=== PATIENT | female | born 1990 | race African-American/Black ===

== ENCOUNTER 2018-06-14 14:25 | Emergency (ER) | payer OTHER ==
[2018-06-14 15:03] LABS: ADD MAN DIFF? NO
[2018-06-14 15:13] LABS: BASOPHILS % 0.4 % (0.0-2.0); EOSINOPHILS # 0.1 10^3/ul (0.0-0.5); EOSINOPHILS % 1.9 % (0.0-7.0); HEMATOCRIT 36.6 % (37.0-47.0); HEMOGLOBIN 12.5 g/dl (12.0-16.0); LYMPHOCYTES # 1.7 10^3/ul (0.8-2.9); LYMPHOCYTES % 32.9 % (15.0-51.0); MEAN CORPUSCULAR HEMOGLOBIN 31.2 pg (29.0-33.0); MEAN CORPUSCULAR HGB CONC 34.2 g/dl (32.0-37.0); MEAN CORPUSCULAR VOLUME 91.3 fl (82.0-101.0); MEAN PLATELET VOLUME 10.9 fl (7.4-10.4); MONOCYTE # 0.4 10^3/ul (0.3-0.9); MONOCYTES % 7.1 % (0.0-11.0); NEUTROPHILS % 57.3 % (39.0-77.0); PLATELET COUNT 225 10^3/UL (140-415); RED BLOOD COUNT 4.01 10^6/ul (4.20-5.40); RED CELL DISTRIBUTION WIDTH 12.6 % (11.5-14.5)
[2018-06-14 15:13] LABS: WHITE BLOOD COUNT 5.2 10^3/ul (4.8-10.8)
[2018-06-14 15:26] LABS: ANION GAP 13 (8-16); BLOOD UREA NITROGEN 10 mg/dl (7-20); CALCIUM 9.6 mg/dl (8.4-10.2); CARBON DIOXIDE 25 mmol/L (21-31); CHLORIDE 106 mmol/L (97-110); CREATININE 0.51 mg/dl (0.44-1.00); GLUCOSE 83 mg/dl (70-220); POTASSIUM 3.9 mmol/L (3.5-5.1); SODIUM 140 mmol/L (135-144)
[2018-06-14 15:28] LABS: INR 0.87; PARTIAL THROMBOPLASTIN TIME 32.9 Sec (23.0-35.0); PROTIME 11.9 Sec (11.9-14.9); PT RATIO 0.9
== END 2018-06-14 16:46 | disposition home or self-care (01) ==
LOC: E/R 14:25
DX: O02.1 Missed abortion (principal)
CPT/HCPCS: 36415; 76801; 80048; 84702; 85025; 85610; 85730; 86900; 86901; 99284-25

== ENCOUNTER 2018-06-18 06:43 | Day surgery (SDC) | payer OTHER ==
[2018-06-18] MEDS ORDERED: CEFAZOLIN 1 GM INJ (07:00)
[2018-06-18] MEDS ORDERED: EPHEDrine SULFATE 50 MG/5 ML SYG (07:00)
[2018-06-18] MEDS: LACTATED RINGER'S 1,000 ML IV* (09:12)
[2018-06-18] MEDS ORDERED: MIDAZOLAM 1 MG/ML 2 ML INJ (09:21)
[2018-06-18] MEDS ORDERED: PROPOFOL 20 ML (09:21)
[2018-06-18] MEDS ORDERED: FENTAnyl 50 MCG/ML VIAL (09:21)
[2018-06-18] MEDS ORDERED: OXYCODONE/ACETAMINOPHEN (5/325) TAB PO (09:30)
[2018-06-18] MEDS ORDERED: DIPHENHYDRAMINE 50 MG INJ IV (09:30)
[2018-06-18] MEDS ORDERED: MEPERIDINE 25 MG INJ IV (09:30)
[2018-06-18] MEDS ORDERED: HYDROmorphONE 1 MG/5 ML IV SYRINGE IV ×3 (09:30)
[2018-06-18] MEDS ORDERED: FENTAnyl 50 MCG/ML VIAL IV ×3 (09:30)
[2018-06-18] MEDS ORDERED: EPHEDrine SULFATE 50 MG/5 ML SYG IV (09:30)
[2018-06-18] MEDS ORDERED: LABETALOL HCL 20MG INJ IV (09:30)
[2018-06-18] MEDS ORDERED: ONDANSETRON 4 MG INJ IV (09:30)
[2018-06-18] MEDS ORDERED: DEXAMETHASONE 4 MG/ML 1 ML INJ (09:34)
[2018-06-18] MEDS ORDERED: ONDANSETRON 4 MG INJ (09:34)
[2018-06-18] MEDS ORDERED: KETOROLAC 30 MG INJ (09:34)
[2018-06-18] MEDS ORDERED: OXYTOCIN 10 UNIT INJ ×2 (09:43→09:48)
== END 2018-06-18 11:25 | disposition home or self-care (01) ==
LOC: SDS 06:43
DX: O02.1 Missed abortion (principal)
CPT/HCPCS: 59820; 86900; 86901; 88305